=== PATIENT | male | born 1945 | race Caucasian/White ===

== ENCOUNTER 2017-05-15 09:45 | Observation (INO) | payer MEDICARE ==
[~2017-05-15] VITALS: Ht 175.3 cm; Wt 88.5 kg
[~2017-05-15 09:45] MED LIST: ASPIRIN325 MG PO; CLONIDINE HCL0.2 MG; FAMOTIDINE20 MG PO; LEVETIRACETAM500 MG; LISINOPRIL10 MG PO; METFORMIN HCL500 MG PO; NOVOLIN 70100 UNITS/; TERAZOSIN; ZOLOFT50 MG PO
[2017-05-15] MEDS ORDERED: ASPIRIN 81 MG CHEW TAB PO ONE (10:15)
--- NOTE | 2017-05-15 10:32 | Diagnostic Imaging Report ---
PROCEDURE:CHEST SINGLE (NOT PORTABLE) TECHNIQUE:Portable AP chest totaling 2 radiographs INDICATION:Chest pain COMPARISON:None. FINDINGS: Lungs are clear and symmetrically inflated. No pleural effusions. Normal heart size and mediastinal contour for technique. Index skeleton. CONCLUSION: No acute abnormality. Dictated by: Armani Solano M.D. on 05/15/2017 at 10:40 Electronically approved by: Armani Solano M.D. on 05/15/2017 at 10:40
--- NOTE | 2017-05-15 11:15 | Diagnostic Imaging Report ---
EXAMINATION: Head CT HISTORY: Status post fall, altered mental status, weakness COMPARISON: None. TECHNIQUE: Multidetector axial images were obtained without contrast from the foramen magnum to the vertex . The images were reconstructed using brain and bone algorithms. Thin section brain images were reformatted into coronal and sagittal planes. Intravenous contrast: None. Motion/streaking artifact limits the evaluation of the skull base and posterior cranial fossa. FINDINGS: Parenchyma: 1. Severe confluent periventricular, otero radiata and centrum semiovale white matter hypodensities, most likely nonspecific chronic microvascular ischemic changes. Small chronic-appearing infarct in the left lentiform nucleus. 2. Right superior cerebellar cortical subcortical encephalomalacia, likely sequela from remote infarct in the right superior cerebellar vascular distribution. 3. No mass or hemorrhage. No CT evidence of acute territorial vascular insult. Extra-axial spaces:No abnormal density. No extra-axial fluid collections Brain volume: Normal for age. Ventricles: No hydrocephalus or displacement. Arteries: No density suggestive of thrombus. Dural sinuses: No abnormal density. Extra-axial spaces: No abnormal density. Foramen magnum: No mass, Chiari malformation, or basilar invagination. Sella: No obvious mass. Paranasal/mastoid sinuses: Imaged portions unremarkable. Skull/Scalp: No lytic or blastic lesions. No fractures. IMPRESSION: 1. No acute intracranial hemorrhage or cortical infarcts. 2. Severe confluent white matter chronic microvascular ischemic changes. 3. Right superior cerebellar chronic infarct. 4. Small chronic lacunar infarcts in the left basal ganglia. Signed by: Dr. Keshia Barry M.D. on 05/15/2017 11:12 AM
[2017-05-15 12:22] LABS: BASOPHILS # (AUTO) 0.1 (0.0-0.1); BASOPHILS % 1.3 % (0.0-1.0); EOSINOPHILS # (AUTO) 0.1 (0.0-0.4); EOSINOPHILS % 1.5 % (0.0-6.0); HEMATOCRIT 37.8 % (38.2-49.6); HEMOGLOBIN 12.5 g/dL (14.0-18.0); LYMPHOCYTES # (AUTO) 1.6 (1.0-3.2); LYMPHOCYTES % 17.8 % (18.0-39.1); MEAN CORPUSCULAR HEMOGLOBIN 30.1 pg (28-32); MEAN CORPUSCULAR HGB CONC 33.1 g/dL (31-35); MEAN CORPUSCULAR VOLUME 91.1 fL (81-99); MONOCYTES # (AUTO) 0.4 (0.2-0.8); MONOCYTES % 4.8 % (4.4-11.3); NEUTROPHILS # (AUTO) 6.8 (2.1-6.9); NEUTROPHILS % 74.3 % (38.7-80.0); PLATELET COUNT 289 x10e3/uL (140-360); RED BLOOD COUNT 4.15 x10e6/uL (4.3-5.7); RED CELL DISTRIBUTION WIDTH 13.1 % (11.7-14.4)
[2017-05-15 12:31] LABS: ALANINE AMINOTRANSFERASE 9 IU/L (0-55); ALBUMIN 4.3 g/dL (3.5-5.0); ALBUMIN/GLOBULIN RATIO 1.2 (0.8-2.0); ALKALINE PHOSPHATASE 90 IU/L (40-150); ANION GAP 14.7 mmol/L (8-16); BLOOD UREA NITROGEN 16 mg/dL (7-26); BUN/CREATININE RATIO 19 (6-25); CALCIUM 9.7 mg/dL (8.4-10.2); CARBON DIOXIDE 25 mmol/L (22-29); CHLORIDE 105 mmol/L (98-107); CREATINE KINASE 42 IU/L (30-200); CREATININE, SERUM 0.84 mg/dL (0.72-1.25); EST GLOMERULAR FILTRATION RATE > 60 ML/MIN (60-); GLUCOSE 128 mg/dL (74-118); POTASSIUM 3.7 mmol/L (3.5-5.1); SODIUM 141 mmol/L (136-145)
[2017-05-15 12:37] LABS: TROPONIN I 0.014 ng/mL (0-0.300)
[2017-05-15] MEDS ORDERED: CLONIDINE HCL 0.2 MG TAB PO STA (13:35)
[2017-05-15] MEDS ORDERED: CLONIDINE HCL 0.1 MG TAB PO ONE (15:00)
[2017-05-15] MEDS ORDERED: HYDRALAZINE HCL 20 MG/ML VIAL IV STA (15:46)
[2017-05-15] MEDS ORDERED: HYDRALAZINE HCL 20 MG/ML VIAL IV ONE (18:00)
[2017-05-15] MEDS ORDERED: LABETALOL HCL IV 5 MG/ML 20ML MDV IV STA (18:30)
[2017-05-15] MEDS ORDERED: DEXTROSE 50% SYRINGE 50 ML IV PRN (18:45)
[2017-05-15] MEDS ORDERED: SERTRALINE HCL 50 MG TAB PO SCH (21:00)
[2017-05-15] MEDS: CLONIDINE HCL 0.2 MG TAB PO PRN (21:06)
[2017-05-15 21:50] LABS: CREATINE KINASE MB 0.9 ng/mL (0.00-5.00); TROPONIN I 0.022 ng/mL (0-0.300)
[2017-05-15 22:48] VITALS: BP 168/72
[2017-05-15 22:59] VITALS: BP 168/72
[2017-05-15 23:45] VITALS: BP 201/122
[2017-05-16] VITALS: BP 176/99
[2017-05-16] MEDS: CLONIDINE HCL 0.2 MG TAB PO PRN (00:02)
[2017-05-16 00:33] VITALS: BP 201/122
[2017-05-16 04:00] VITALS: BP 175/96
[2017-05-16] MEDS ORDERED: METFORMIN HCL 500 MG TAB PO SCH (08:00)
[2017-05-16 08:37] VITALS: BP 171/92
[2017-05-16 08:56] VITALS: BP 171/92
[2017-05-16] MEDS ORDERED: TERAZOSIN HCL 1 MG CAP PO SCH (09:00)
[2017-05-16] MEDS ORDERED: CLONIDINE HCL 0.2 MG TAB PO SCH (09:00)
[2017-05-16] MEDS ORDERED: FAMOTIDINE 20 MG TAB PO SCH (09:00)
[2017-05-16] MEDS ORDERED: LISINOPRIL 10 MG TAB PO SCH (09:00)
[2017-05-16] MEDS ORDERED: LEVETIRACETAM 500 MG TAB PO SCH (09:00)
[2017-05-16] MEDS ORDERED: ASPIRIN 325 MG TAB PO SCH (09:00)
[2017-05-16 10:38] LABS: CREATINE KINASE MB 2.3 ng/mL (0.00-5.00); TROPONIN I 0.517 ng/mL (0-0.300)
[2017-05-16] MEDS ORDERED: LISINOPRIL40 MG PO (12:17)
[2017-05-16] MEDS ORDERED: METOPROLOL SUCC50 MG PO (12:18)
[2017-05-16 12:27] VITALS: BP 175/87
--- NOTE | 2017-05-16 13:12 | History and Physical ---
Mr. Roman is an unfortunate 72-year-old man who is brought to the emergency room by his daughter after he fell down at home. HISTORY OF PRESENT ILLNESS: The patient has not taken any of his blood pressure medicines on the day of presentation, but reports that he frequently falls down. He has trouble walking after he had a stroke in 2014. He keeps a walker in the house and uses it some times. PAST MEDICAL HISTORY: Significant for longstanding hypertension and hyperlipidemia. He had stroke evidently in 2014. Evidently, he was hospitalized at [facility] and had a rehab stay there and continues to receive some physical therapy assessment and treatment at home. He has residual right-sided weakness. He had colonoscopy and polypectomy at [facility] in [address] Hari Brown. MEDICATIONS: Evidently, his home medications include lisinopril 10 mg daily, terazosin 2 mg daily, clonidine 0.2 twice a day, aspirin 325 mg daily, and Zoloft 50 mg daily. He may use insulin at home, but does not tell me that. He assures me he does not check fingerstick blood sugars. PERSONAL AND SOCIAL HISTORY: Reports he stopped working the day he had stroke. REVIEW OF SYSTEMS: Cardiac; no chest pain or palpitations. No syncope. PHYSICAL EXAMINATION GENERAL: At this time shows a pleasant, alert man who is awake, conversant, and oriented. VITAL SIGNS: Blood pressure is 171/92. HEENT: Unremarkable. NECK: No jugular venous distention or bruits. THORAX: Heart sounds S1, S2 equal. No murmurs. LUNGS: Clear. ABDOMEN: Protuberant. Normal bowel sounds. EXTREMITIES: No cyanosis, clubbing, or edema. LABORATORY DATA: Admitting laboratory studies are unrevealing. Glucose 128. Potassium 3.7. ASSESSMENT 1. Falling a result of previous cerebrovascular accident with right-sided weakness. 2. Hypertension, uncontrolled as he did not take any medications on the day of presentation. 3. Hyperglycemia. PLAN: We will adjust medication regimen and monitor him. Further management will be based on clinical course. Job#: [id number] SAK cc:Michael Beckett DO
--- NOTE | 2017-05-16 13:13 | Discharge Summary ---
HISTORY: Mr. Roman is an unfortunate 72-year-old man with previous cerebrovascular accident and right-sided weakness, who was brought to the emergency room for falling down. HOSPITAL COURSE: Patient's neurological status was found to be stable at his regular baseline with right-sided weakness and his blood pressure was elevated in the emergency room around 200/100. He was given various medications to lower the blood pressure and today, he is feeling some better, blood pressure around 170/90. His neurologic status is baseline and he is discharged to home to both adjust his medications and to assure that he actually takes his medications, which is supervised by his daughter. DISCHARGE MEDICATIONS Include 1. Famotidine 20 mg daily. 2. Levetiracetam 500 mg twice a day. 3. Terazosin 2 mg daily. 4. Clonidine 0.2 twice a day. 5. Aspirin 325 mg daily. 6. Metformin 500 mg twice a day. 7. His lisinopril was increased to 40 mg daily. 8. He will continue sertraline 50 mg daily. 9. We will add metoprolol succinate 50 mg daily to his regimen. FOLLOWUP: He will follow up with Dr. Beckett in 1 week for further blood pressure medicine adjustment and he will continue his home physical therapy after cerebrovascular accident. BANDAR CONTRERAS MD Job#: [id number] VAS
== END 2017-05-16 13:59 | disposition home or self-care (01) ==
LOC: ER 09:45 → ERHOLD 18:32 → IMCU 21:33
PROVIDERS: ADMIT Internal Medicine Cardiovascular Disease; ATTEND Internal Medicine Cardiovascular Disease
DX: I10 Essential (primary) hypertension (principal); I69.351 Hemiplegia and hemiparesis following cerebral infarction affecting right dominant side; Z91.81 History of falling; E78.5 Hyperlipidemia, unspecified; E11.65 Type 2 diabetes mellitus with hyperglycemia
CPT/HCPCS: 36415 ×2; 70450; 71010; 80053; 82550 ×2; 82553 ×2; 82948 ×2; 84484 ×2; 85025; 93005; 93306; 99284; G0378 ×2; J0360; J3490